=== PATIENT | male | born 1945 | race Caucasian/White ===

== ENCOUNTER 2018-01-16 09:39 | Day surgery (SDC) | payer OTHER, SELFPAY ==
--- NOTE | 2018-01-16 | PATH_ITS ---
[facility] Accession Number: [id number] . 01 Material submitted: . PART A: ASCENDING COLON POLYP PART B: POLYP AT 60 PART C: POLYP AT 20 . 02 Diagnosis: A. Biopsy, Ascending Colon Polyp: Changes consistent with sessile serrated adenoma involving single biopsy fragment. . B. Biopsy, Colon Polyp At 60 CM: Tubular adenoma involving both biopsy fragments. . C. Biopsy, Colon Polyp At 20 CM: Tubular adenoma involving both biopsy fragments. . I/01/20/2018 . 02 Electronically signed: . Eddie Mcmahan MD, Pathologist NPI- [id number] . 01 Gross description: . Received three formalin-filled containers, each labeled with the patient's name. . A. In a container labeled ascending colon polyp are two 0.2-0.3 cm portions of tissue entirely submitted in cassette A. B. In a container labeled polyp at 60 are two 0.2 to 0.4 cm portions of tissue entirely submitted in B. C. In a container labeled polyp at 20 are two 0.3 to 0.4 cm portions of tissue entirely submitted in cassette C. [place] [place][id number] /MRV . 02 Pathologist provided ICD-10: D12.2 . 02 CPT . 026886, [id number], [id number] Performed at: 01 [facility] [address] [id number] MD iWlian Rondon MD Phone: [phone] Performed at: 02 [facility] [place] [address] [place], [place] [id number] MD Rony Murillo MD Phone: [phone]
[2018-01-16 10:07] VITALS: BP 129/75; PULSE 56; RESP 16; TEMP 36.1; O2SAT 99; BMI 24.6
[2018-01-16] MEDS: SODIUM CHLORIDE 0.9% 1,000 ML 200 ML IV (10:15)
--- NOTE | 2018-01-16 11:03 | PM.HP.1 ---
History of Present Illness Date Patient Seen: 01/16/18 Time Patient Seen: 11:00 Chief complaint: colonoscopy [id number] Narrative: The patient is a gentleman here for a screening colonoscopy. His last exam was 5 years ago. His father, paternal grandmother both of colon cancer. Patient History Medical History Essential hypertension (Chronic) Retina disorder, bilateral (Resolved) Surgical History H/O shoulder surgery (Resolved) History of cataract surgery (Resolved) Family & Social History Social History: household members spouse Meds Home Medications Medication Instructions Recorded Confirmed Type amlodipine 5 mg PO DAILY 01/16/18 01/16/18 History aspirin [Aspir-81] 81 mg PO DAILY 01/16/18 01/16/18 History atorvastatin 10 mg PO DAILY 01/16/18 01/16/18 History Allergies Allergy/AdvReac Type Severity Reaction Status Date / Time No Known Drug Allergies Allergy Verified 01/16/18 10:04 Review of Systems Review of Systems All systems reviewed & are unremarkable except as noted in HPI and below Exam Vital Signs (past 8 hours): - 01/16/18 10:07 Temperature 97.0 F L Pulse Rate 56 L Respiratory Rate 16 Blood Pressure 129/75 Pulse Oximetry 99 Oxygen Delivery Method Room Air Narrative Exam Narrative: Operative no apparent distress. Lungs are clear to auscultation. Heart regular rate and rhythm without murmur gallop. Abdomen is scaphoid soft nontender without mass. Assessment & Plan Plan: Assessment/Plan Narrative: Here for screening colonoscopy. I have discussed the procedure and the rationale with the patient including risks of bleeding, perforation which would necessitate a major operation, failure to find remove all lesions and the potential to tattoo. They appeared to understand and wished to proceed.
[2018-01-16] MEDS: MIDAZOLAM 5 MG/5 ML VIAL IV (11:21)
[2018-01-16] MEDS: fentaNYL 250 MCG/5 ML INJ IV (11:22)
--- NOTE | 2018-01-16 11:47 | PM.OP.ENDO ---
Operative Date/Time/Diagnoses Date of procedure: 01/16/18 Time of procedure: 11:47 Pre-op diagnosis: Screening examination. Last exam 5 years ago. Family history of colon cancer. Post-op diagnosis: same (Multiple polyps. Sigmoid diverticulosis.) Procedure & Clinicians Study performed: Colonoscopy with cold biopsy. Same procedure as scheduled: Yes Indications: Screening Surgeon: Albaro Vieira Procedure Notes SCOAP/Timeout: Performed Procedure in detail: The patient was placed in the left lateral decubitus position and underwent IV sedation directed by the surgeon consisting of fentanyl and Versed. Digital exam was remarkable for an increased sphincter tone and enlarged prostate. There was no dominant mass. The prostate was somewhat firm however.. The scope was inserted and advanced through the rectum into the sigmoid, descending, transverse, and ascending colon. The sigmoid colon was noted to have extensive diverticulosis. No other lesions were seen. The cecum was reached identified by the ileocecal valve and the appendiceal opening. The scope was gradually brought out. In the ascending colon as we removed the scope there was a polyp which was biopsied to complete removal. We continued slowly outward and additional polyps were found at 60 cm and at 20 cm from the anal verge. They appeared to be completely removed. The scope ultimately was retroflexed in the rectum. The appearance was[normal]. The scope was removed and the patient tolerated the procedure well Scope withdrawal time: Almost 16 min Sedation minutes: 36 Findings: diverticulosis (Sigmoid colon) and polyp (At 20, 60 cm and in the ascending colon) Specimen(s): other (Polyps) Complications: none Recommendations: Colonscopy in 5 years Plan for aftercare: Follow-up is needed Follow up: as needed Disposition: same day surgery
[2018-01-16 11:55] VITALS: BP 122/70; PULSE 54; RESP 16; TEMP 36.2; O2SAT 99
--- NOTE | 2018-01-16 12:13 | SUR.PHASEII ---
pt by passed pacu, awake on arrival. vss. to bedside, both spoke with dr sim. dressed when ready and left when ready and in stable condition.
== END 2018-01-16 12:15 | disposition home or self-care (01) ==
PROVIDERS: Family Provider Internal Medicine; PCP Internal Medicine; Visit Provider Specialist
PROC: 0DJD8ZZ Inspection of Lower Intestinal Tract, Via Natural or Artificial Opening Endoscopic (ICD-10-PCS; CPT 45378; principal; 2018-01-16 10:45)
DX: Z12.11 Encounter for screening for malignant neoplasm of colon (principal); K57.30 Diverticulosis of large intestine without perforation or abscess without bleeding; I10 Essential (primary) hypertension; Z80.0 Family history of malignant neoplasm of digestive organs; D12.2 Benign neoplasm of ascending colon
CPT/HCPCS: 45380; 99152; 99153; J2250; J3010